=== PATIENT | female | born 1955 | race Caucasian/White ===

== ENCOUNTER → 2021-01-30 | Outpatient (CLI) | payer MEDICARE, OTHER ==
[~2021-01-30] MED LIST: ALEN70TA82 PO; ASPI325T57 PO; ATOR40TA75 PO; AZEL1SPR3 NARES; BUSP5TA PO; CETI-36 PO; FERR325T3 PO; LEVO88TA3 PO; LORA-622 PO; METF-838 PO; MONT10TA10 PO; PANT20TA6 PO; PARO40TA2 PO; PURE500C5 PO; QC F0.52 PO; TRAZ-252 PO
== END ==
LOC: M LABSMTC 10:36
PROVIDERS: ATTEND Anesthesiology
DX: Z01.812 Encounter for preprocedural laboratory examination (principal)

== ENCOUNTER → 2021-02-04 | Day surgery (SDC) | payer MEDICARE, OTHER ==
[~2021-02-04] VITALS: Ht 157.5 cm; Wt 63.0 kg
[~2021-02-04] MED LIST changes: +LIDOCAINE 1% MDV 20ML VIAL As Ordered ONE; +LIDOCAINE 1% MDV 20ML VIAL SQ PRN; +LIDOCAINE 2% 100MG/5ML SDV (FOR ANES.) As Ordered ONE; +LR 1,000 ML IV ONE; +MIDAZOLAM INJ 2MG/2ML VIAL (J2250 PER 1MG) As Ordered ONE; +ceFAZolin SOD 1 GM in D5W MINI-BAG PLUS 50 ML IV ONE; +fentaNYL 100 MCG/2 ML INJECTION (J3010) As Ordered ONE; +propofoL 200 MG/20 ML VIAL As Ordered ONE
--- NOTE | 2021-02-04 15:05 | RO ---
OPERATIVE NOTE DATE OF OPERATION: 02/04/2021 PREOPERATIVE DIAGNOSIS: Subcutaneous cardiac rhythm monitor in situ ([employer]tronic LINQ). POSTOPERATIVE DIAGNOSIS: FINDINGS: Subcutaneous cardiac rhythm monitor in situ (Medtronic LINQ). PROCEDURE PERFORMED: Explantation of Medtronic LINQ subcutaneous cardiac rhythm monitor. SURGEON: Hussein Luna M.D. LEVELER HELPER: None. ANESTHESIA: Lidocaine 1% local/monitored anesthetic care. SPECIMENS: Medtronic LINQ subcutaneous cardiac rhythm monitor. ESTIMATED BLOOD LOSS: Less than 1 mL. BLOOD PRODUCTS: None replaced. DRAINS: None. COMPLICATIONS: None. DESCRIPTION OF PROCEDURE: The patient was prepped and draped over the left anterior chest. Lidocaine 1% was used for a local anesthetic. An incision approximately 1 cm in length was made over the medial forward/superior tip of the subcutaneous cardiac rhythm monitor with a #15 blade. The loop recorder was gripped with a snap and was pulled out of the pocket. The incision was then closed temporarily with a 4-0 Biosyn suture applied subcuticular with the free ends of the suture protruding through the skin 1 cm from both ends of the incision line. Through there Dermabond was applied. The Biosyn suture was then pulled through the incision and removed entirely. The patient tolerated the procedure well without any immediate complications.
[2021-02-04 15:15] VITALS: BP 152/71
== END | disposition home or self-care (01) ==
LOC: M SDC 13:03
PROVIDERS: ATTEND Internal Medicine Cardiovascular Disease
DX: Z45.09 Encounter for adjustment and management of other cardiac device (principal); I10 Essential (primary) hypertension; E03.9 Hypothyroidism, unspecified; K21.9 Gastro-esophageal reflux disease without esophagitis; F41.9 Anxiety disorder, unspecified; E78.5 Hyperlipidemia, unspecified; Z86.73 Personal history of transient ischemic attack (TIA), and cerebral infarction without residual deficits; M81.0 Age-related osteoporosis without current pathological fracture; Z79.82 Long term (current) use of aspirin; Z79.84 Long term (current) use of oral hypoglycemic drugs; Z79.899 Other long term (current) drug therapy; Z91.040 Latex allergy status
CPT/HCPCS: 33286; J0690; J2250; J3010